=== PATIENT | female | born 1960 | race Caucasian/White ===

== ENCOUNTER 2017-01-06 09:44 | Outpatient (CLI) | payer OTHER ==
[2017-01-06] VITALS (17 sets, daily range): BP systolic 116–164; BP diastolic 87–106; PULSE 75–90
[~2017-01-06] VITALS: Ht 175.3 cm; Wt 71.5 kg
[~2017-01-06 09:44] MED LIST: XANAX .25M0.25 MG/TA
== END 2017-01-06 14:54 | disposition home or self-care (01) ==
LOC: COL.RAD 09:44
DX: R59.0 Localized enlarged lymph nodes (principal); R91.8 Other nonspecific abnormal finding of lung field
CPT/HCPCS: J2250; J3010

== ENCOUNTER → 2017-03-14 | Outpatient (CLI) | payer OTHER | LOC: COL.RAD 12:02 | DX: C34.11 Malignant neoplasm of upper lobe, right bronchus or lung (principal) | CPT/HCPCS: A9585 ==